=== PATIENT | male | born 1945 | race Caucasian/White ===

== ENCOUNTER 2017-06-18 23:20 | Emergency (ER) | payer MEDICARE, OTHER ==
[~2017-06-18] VITALS: Ht 185.4 cm; Wt 90.7 kg
[~2017-06-18 23:20] MED LIST: ASPI325 PO; LEVSOD75 PO; LOSA25 PO; LOSA50 PO; OXYC5 PO
== END 2017-06-19 00:02 | disposition left against medical advice (07) ==
LOC: ER 23:20
DX: Z53.21 Procedure and treatment not carried out due to patient leaving prior to being seen by health care provider (principal)